=== PATIENT | female | born 1955 ===

== ENCOUNTER → 2024-07-17 | Outpatient (REF) | payer MEDICARE, OTHER | LOC: M LAB REF 15:02 | PROVIDERS: ATTEND Registered Nurse | DX: J06.9 Acute upper respiratory infection, unspecified (principal); N39.0 Urinary tract infection, site not specified ==

== ENCOUNTER → 2024-07-18 | Outpatient (CLI) | payer MEDICARE, OTHER | LOC: M WUC 14:11 | PROVIDERS: ATTEND Registered Nurse | DX: J06.9 Acute upper respiratory infection, unspecified (principal) ==

== ENCOUNTER → 2024-07-21 | Outpatient (REF) | payer MEDICARE, OTHER | LOC: M LAB REF 12:15 | PROVIDERS: ATTEND Registered Nurse | DX: R19.7 Diarrhea, unspecified (principal) ==